=== PATIENT | male | born 1965 | race Two or more races ===

== ENCOUNTER 2025-05-09 06:10 | Day surgery (SDC) | payer MEDICAID, SELFPAY ==
[2025-05-09] VITALS (21 sets, daily range): BP systolic 84–142; BP diastolic 54–88; PULSE 48–69; RESP 10–16; TEMP 35.3–36.8; O2SAT 93–100; BMI 26.9
[2025-05-09] MEDS: LACTATED RINGERS 1000 ML 1,000 ML 100 ML IV ×2 (06:15→10:54)
[2025-05-09] MEDS: OXYCODONE (CR) 10 MG TAB.ER.12H PO (06:20)
[2025-05-09] MEDS: CELECOXIB 200 MG CAPSULE PO (06:20)
[2025-05-09] MEDS: MIDAZOLAM HCL 1 MG/ML inj IVP (06:20)
[2025-05-09] MEDS: ACETAMINOPHEN 500 MG TABLET 1000 MG PO (06:20)
[2025-05-09] MEDS: SODIUM CHLORIDE 0.9 % (FLUSH) 10 ML SYRINGE IVF (06:45)
--- NOTE | 2025-05-09 07:33 | SUR.PREOP ---
TIME?OUT:?719 PT/seb jimenez RN/chantell hernández BEVEL FACE STONER AND POLISHER/ [facility]?VERIFICATION?OF?SURGICAL?SITE,?PROCEDURE,?AND?CONSENT OBTAINED?PRIOR?TO?INVASIVE?PROCEDURE.
[2025-05-09] MEDS: TRANEXAMIC ACID 100 MG/ML INJ 1000 MG IV (08:20)
--- NOTE | 2025-05-09 08:45 | SUR.OPER ---
THREE AREAS OF ABRASIONS ON LATERAL SIDE OF LEFT LEG NOTED PREOPERATIVELY
--- NOTE | 2025-05-09 09:24 | PM.ORPRC ---
Procedure Note Date of procedure: 05/09/25 Procedure: PREOPERATIVE DIAGNOSIS: Left knee osteoarthritis POSTOPERATIVE DIAGNOSIS: Left knee osteoarthritis NAME OF OPERATION: Left total knee arthroplasty SURGEON: Bruce Crowley MD STRUCTURAL STEEL DETAILER: MYCHAL Barbosa ANESTHESIA: Spinal ESTIMATED BLOOD LOSS: 0 mL COMPLICATIONS: None SPECIMENS: None DRAINS: None PREOPERATIVE ANTIBIOTICS: Ancef 1 g IMPLANTS: 1. J&J Attune # 5 posterior stabilized femur 2. #6 fixed-bearing tibia 3. # 5 posterior stabilized, 8 mm fixed-bearing polyethylene 4. 38 patella INDICATIONS: The patient is a 60-year-old with a longstanding history of severe, unrelenting left knee pain secondary to end-stage (grade IV) left knee osteoarthritis. Despite appropriate nonoperative management, including activity modification, anti-inflammatories, brvu-pjq-[id number] pain medication, bracing, physical therapy, and injections they continue to have pain and disability. Operative intervention was offered. The risks, benefits and expected outcomes were discussed in detail. These included but were not limited to: Infection, bleeding, injury to blood vessel or nerve, venous thromboembolism. All questions were answered to their satisfaction. Use of an physiotherapy assistant was necessary throughout the case for patient positioning and safety, soft tissue retraction, and closure. PROCEDURE: Spinal anesthesia was administered. The patient was placed supine on the operating table. The physiotherapy assistant made sure the patient was positioned appropriately. The lower extremity was prepped and draped in the usual sterile fashion. The limb was exsanguinated with the Horace bandage. The pneumatic tourniquet was inflated to 300 mmHg. A standard anterior incision was made with the knee in flexion. Subcutaneous dissection was sharply taken through fascial layer #1. Full-thickness medial and lateral flaps were elevated. The physiotherapy assistant retracted the soft tissues and protected them throughout the case. A standard subvastus approach was made. The patella was subluxed. The infrapatellar fat pad was preserved. The menisci and cruciate ligaments were sharply d?brided. Marginal osteophytes were d?brided with the rongeur. The drill was used to penetrate the femoral canal. The canal was aspirated and irrigated with pulse lavage. The intramedullary femoral guide was placed for a 5-degree valgus cut, removing 10 mm off the distal femur. The saw was used to make the cut. Whitesides line and the trans epicondylar axis were marked. The femoral sizing guide was pinned onto the distal femur. Three degrees of external rotation nicely parallels the transepicondylar axis. Pins were placed for posterior referencing. The four-in-one cutting guide was pinned onto the distal femur. The anterior, posterior, and chamfer cuts were made. The physiotherapy assistant protected the collateral ligaments. The box cutting guide was pinned. The box cuts were made. The boxed trial was placed and was an excellent fit. Drill holes for the lugs were made. Attention was then turned to the proximal tibia. The extramedullary tibial guide was placed for a neutral varus/valgus cut with 5 degrees of posterior slope, removing 1 mm based off the medial tibial surface. The physiotherapy assistant protected the collateral ligaments and the neurovascular bundle. The saw was used to make the cut. Trial components were placed. The knee was nicely balanced in both flexion and extension. The trial components were removed. The tray was placed in appropriate rotation, parallel to our tibial cutting pins. It was pinned by the physiotherapy assistant and the drill and the punch were used. The tray was removed. The punch was used again. We placed a bone plug in the femoral canal. Attention was then turned to the patella. [place] patellar thickness was 23.5 mm. The lobster claw resection guide was used with the 9.5 mm moe. The saw was used to make the cut. Drill holes were made by the physiotherapy assistant. The trial was placed and was an excellent fit. Cancellous surfaces were irrigated with pulse lavage and thoroughly dried by the physiotherapy assistant. We cemented the tibial component, then the femoral component. We impacted the 8 mm polyethylene onto the tibial tray. The knee was brought into full extension. We then cemented the patellar component. Excessive cement was removed. The cement was allowed to harden. The knee was taken through a range of motion and was found to be nicely balanced in both flexion and extension. The patella tracks centrally. The physiotherapy assistant did a three minute dilute Betadine solution soak. The physiotherapy assistant irrigated the wound with 3 liters of normal saline via pulse lavage. The physiotherapy assistant reapproximated the extensor mechanism with #1 Vicryl in an interrupted [id number] fashion. The physiotherapy assistant then ran the extensor mechanism with a #1 PDO Stratafix. The physiotherapy assistant closed the subcutaneous tissues with a 3-0 Stratafix and the skin with a running 3-0 Stratafix in a subcuticular fashion. Glue was used to seal the skin. The physiotherapy assistant placed a dry dressing. Sponge and needle counts were correct x2. The patient tolerated the procedure well. There were no apparent complications. They were carefully transferred to the hospital bed and taken to the postanesthesia care unit in satisfactory condition. PLAN: The patient will be mobilized with physical therapy. Aspirin will be used for DVT prophylaxis. They will be discharged to home once medically appropriate.
--- NOTE | 2025-05-09 10:04 | P.ANES_ITS ---
Anesthesia Charges Start Date/Time Anesthesia Start Date: 05/09/25 Anesthesia Start Time: 08:05 Stop Date/Time Anesthesia Stop Date: 05/09/25 Anesthesia Stop Time: 10:03 Coding CPT Codes CPT Codes: ANESTH KNEE ARTHROPLASTY - 93351 ([id number]) P2 - PATIENT W/MILD SYST DISEASE, QK - REVENUE INVESTIGATOR 2-4 CNCRNT ANES PROC, QX - INTERNAL CORROSION SPECIALIST SVC W/ MD MED DIRECTION
--- NOTE | 2025-05-09 10:04 | W.ANESCHARGE ---
Anesthesia Charges Start Date/Time Anesthesia Start Date: 05/09/25 Anesthesia Start Time: 08:05 Stop Date/Time Anesthesia Stop Date: 05/09/25 Anesthesia Stop Time: 10:03 Coding CPT Codes CPT Codes: ANESTH KNEE ARTHROPLASTY - 28940 ([id number]) P2 - PATIENT W/MILD SYST DISEASE, QK - OWNER MANAGER 2-4 CNCRNT ANES PROC, QX - BOAT GARNISHER SVC W/ MD MED DIRECTION
[2025-05-09] MEDS: PHENYLEPHRINE 100 MCG/ML SYRINGE IVP ×2 (10:06→10:21)
--- NOTE | 2025-05-09 10:17 | CRLHL7_ITS ---
For Patients: As a result of the Cures Act, medical imaging exams and procedure reports are released immediately into your electronic medical record. You may view this report before your referring provider. If you have questions, please contact your health care provider. Indication: Postop left TKA Technique: Two views left knee Findings/Impression: Hardware from a left total knee arthroplasty is in satisfactory position. Bone alignment is normal. No sign of acute fracture. Postop changes are within normal limits. Dictated by Yaya Allen MD @ 05/09/2025 11:54:09 AM (Electronically Signed)
--- NOTE | 2025-05-09 10:19 | P.ANES_ITS ---
Anesthesia Charges Start Date/Time Anesthesia Start Date: 05/09/25 Anesthesia Start Time: 08:05 Stop Date/Time Anesthesia Stop Date: 05/09/25 Anesthesia Stop Time: 10:03 Coding CPT Codes CPT Codes: ANESTH KNEE ARTHROPLASTY - 93828 ([id number]) QK - CANARY RAISER 2-4 CNCRNT ANES PROC, QX - SILL WORKER SVC W/ MD MED DIRECTION, P2 - PATIENT W/MILD SYST DISEASE
--- NOTE | 2025-05-09 10:19 | P.NB_ITS ---
Nerve Block Nerve Block Time Seen by Provider: 07: Date Seen: 05/09/25 Type of block requested by surgeon for post-operative analgesia: adductor canal Side: left Time out performed: Yes Verification of patient name: Yes Verification of date of : Yes Site marking: site marked Name of person performing procedure: Geoff Continuous monitoring Was continuous monitoring of O2 sat, B/P, cardiac nurse practitioner, recorded every 15 minutes?: Yes Procedure Checklist: sterile prep, needles and gloves Ultrasound guided. Images saved: Yes Medications given in 5ml increments after negative aspiration: Marcaine %: 0.25 mL: 15 Needle gauge: 20 Precedex (mcg): 25 Patient tolerated procedure well: Yes Block Charges Block Charge (with Pro Fee): Femoral Nerve Use of Ultrasound Machine for Block: Yes- US Guidance/pain block
--- NOTE | 2025-05-09 10:19 | W.ANESCHARGE ---
Anesthesia Charges Start Date/Time Anesthesia Start Date: 05/09/25 Anesthesia Start Time: 08:05 Stop Date/Time Anesthesia Stop Date: 05/09/25 Anesthesia Stop Time: 10:03 Coding CPT Codes CPT Codes: ANESTH KNEE ARTHROPLASTY - 25833 ([id number]) QK - FEATHER SHAPER 2-4 CNCRNT ANES PROC, QX - DEVELOPMENTAL EDUCATION INSTRUCTOR SVC W/ MD MED DIRECTION, P2 - PATIENT W/MILD SYST DISEASE
--- NOTE | 2025-05-09 10:20 | W.PM.NB ---
Nerve Block Nerve Block Time Seen by Provider: 07:25 Date Seen: 05/09/25 Type of block requested by surgeon for post-operative analgesia: geniculars Side: left Time out performed: Yes Verification of patient name: Yes Verification of date of : Yes Site marking: site marked Name of person performing procedure: Geoff Continuous monitoring Was continuous monitoring of O2 sat, B/P, teletypesetter monitor, recorded every 15 minutes?: Yes Procedure Checklist: sterile prep, needles and gloves Ultrasound guided. Images saved: Yes Medications given in 5ml increments after negative aspiration: Marcaine %: 0.25 mL: 9 Needle gauge: 25 Patient tolerated procedure well: Yes Block Charges Block Charge (with Pro Fee): Genicular Nerve Block
--- NOTE | 2025-05-09 14:01 | SUR.PHASEII ---
pt did well in PT, no other issues
== END 2025-05-09 13:50 | disposition home or self-care (01) ==
LOC: OR 06:13
PROVIDERS: PCP Family Medicine; Visit Provider Orthopaedic Surgery
PROC: (CPT 27447; principal; 2025-05-09 07:30)
DX: M17.12 Unilateral primary osteoarthritis, left knee (principal); G89.18 Other acute postprocedural pain
CPT/HCPCS: 27447; 01402; 64447; 64454; 73560; 76942; 97110; 97116; 97161; A9270; C1776; J0665; J0690; J2250; J3010; J7120

== ENCOUNTER 2025-06-23 11:00 | Outpatient (RCR) | payer MEDICAID, SELFPAY ==
--- NOTE | 2025-05-12 12:02 | PT.OPEX ---
[facility] Eval PT [facility] Outpatient Eval Start: 05/11/25 12:50 Freq: Status: Active Protocol: Document 05/12/25 07:25 HLA (Rec: 05/12/25 11:57 HLA [id number]) E-signed By Soha Robertson, PT, DPT Physical Therapy Outpatient Evaluation Insurance Information Recert Due Date 08/09/25 Insurance Name [employer] Medical Diagnosis L TKA Hx OA, sciatica L LE, transaminitis, ORIF of ankle Treating Diagnosis weakness, pain, difficulty amb after L TKA Referring MD Crowley Subjective Preferred Name Francisco Subjective Francisco's son Valerie is here to interpret, and he did sign waiver for endoscopy rn today. Pain 7/10 with ex, otherwise 2-3/10. Takes oxycodone 3x/day, no tylenol or ibuprofen. Using ice 4x/day. Ind prior to surgery, amb ind, does not drive. Son drives him. Sleeping fine. Doing his ex. Lives in 1 level home, no stairs. Pain Comments 7/10 L thigh. Date of Last 05/09/25 Physician Visit Date of Surgery (If 05/09/25 applicable) Current Work Status Unemployed Precautions Weight Bearing Weight Bear as Tolerated Status Therapy Limitations/ Communication Ability Systems Review Objective Range of Motion L hip 0-119 flex, abd 0-45 L knee 3-100 L ankle WNL R LE WNL UEs WNL Strength L hip 5-/5 L knee 3+/5 L ankle 5/5 R LE 5/5 UES 5/5 Swelling L LE and thigh, issued tubigrip Palpation L quad Balance & Gait Gait-with ww, step to pattern, flexed at hips, corrected with cues and demonstration and able to achieve heel toe pattern, reciprocal gt with walker, hips extended at stance 200 feet x 2. Balance screen good with walker Sensation/Reflexes intact to light touch Other/Pertinent circumferential measurements: Objective 7 cm prox to patella 47 cm mid patella 45 cm 7 cm distal to patella 38 cm Functional Test LEFS 23/80, 28.7% Performed & Score Assessment Assessment/ Francisco is a 60 year old male s/p L TKA on 05/09/25. PMHx Impression includes OA, L sciatica, transaminitis, and ORIF of ankle. Francisco is here today with his son Valerie who is interpreting for him; endoscopy rn waiver signed. At baseline, he lives in a single level home, no stairs, shower in the home. Pt with 5-100 L knee flex seated by end of session, circumferential measurements taken and tubigrip fitted and issued. Instructed in all TKA ex including strap for HS and LAQ otherwise all ex were performed actively. Showed pt gym and progression of ex and gt in PT instructed. Physical therapist instructed in positioning, use of ice, activity level, bed mobility, transfers, gt with walker, stairs and car transfers today. Patient presents with edema, pain surgical leg, impaired ROM, impaired strength, impaired transfers and impaired ambulation. He will benefit from PT twice weekly to regain full AROM and strength L knee, return to community distance amb no device. Primary Functional pain L knee Limitations edema L knee weakness, impaired ROM L knee post TKA impaired amb, transfers and mobility Plan of Care Rehabilitation Good Potential Physical Therapy Within 10-12 weeks: Goals 1. Pt will have knee AROM 0-120 degrees for transfers, ADLs, and stairs independence. 2. Pt will amb 20 min with se cane or no device as indicated, safely and independently for community and household ambulation. 3. Pt will be independent in home ex program for buttermaker helper pain management and to promote independence and to decrease fall risk. 4. Pt will ascend/descend 13 stairs with railing independently for community mobility. Coordination/ Referral Source,Patient Caregiver Communication With Treatment Plan/ Gait Training,Ice/Cold/Vasopneumatic,Joint Mobilization Direct Interventions ,Manual Therapy,Neuromuscular Re-ed,Orthotics/Braces, Self-Care/Home Management,Therapeutic Activities, Therapeutic Exercises Patient Will Be Completion of LTG(s),Skills Plateau,Independent w/HEP, Discharged From Independently Progressing Therapy Evaluation Billing Untimed Code 12 Treatment Minutes PT Eval No Charge No Complexity Low Certification Information Initial 05/12/25 Certification Date Ending Certification 08/09/25 Date Provider Signature Yes Required Provider Signature POC & Medical Necessity Shows Agreement With Physician NPI Number Write NPI# Here Physician Comment/ : Change Physician Signature Please Sign/Date Here & Date Requested
== END 2025-06-23 11:38 | disposition home or self-care (01) ==
PROVIDERS: PCP Family Medicine; Visit Provider Orthopaedic Surgery
DX: M17.12 Unilateral primary osteoarthritis, left knee (principal); Z96.652 Presence of left artificial knee joint; M54.32 Sciatica, left side; R53.1 Weakness; Z47.1 Aftercare following joint replacement surgery; Z47.89 Encounter for other orthopedic aftercare
CPT/HCPCS: 97110; 97112; 97116; 97140; 97161; J0690; J1100; J2371; J2405; J2704